=== PATIENT | male | born 1955 | race African-American/Black ===

== ENCOUNTER 2020-01-16 22:44 | Observation (INO) ==
[2020-01-16] MEDS ORDERED: 0.9 % Sodium Chloride 1,000 ML IVC ONE (23:09)
[2020-01-16 23:39] LABS: Basophils # 0.1 K/mcL (0.0-0.2); Basophils % 0.6 %; Eosinophils # 0.3 K/mcL (0.0-0.6); Eosinophils % 1.8 %; Hemoglobin 12.9 g/dL (12.9-16.9); Immature Granulocytes % 0.4 % (0-4); Lymphocytes # 0.6 K/mcL (0.6-4.6); Lymphocytes % 3.9 %; Mean Corpuscular HGB Conc 30.7 g/dL (31.6-35.5); Mean Corpuscular Hemoglobin 24.2 pg (28.0-33.3); Mean Corpuscular Volume 78.7 fL (83.0-100.0); Mean Platelet Volume 10.3 fL (9.4-12.4); Monocytes # 1.2 K/mcL (0.0-1.3); Monocytes % 8.8 %; Neutrophils # 11.9 K/mcL (1.6-8.9); Platelet Count 266 K/mcL (140-400); Red Blood Count 5.34 M/mcL (4.19-5.50); Red Cell Distribution Width 16.9 % (11.5-14.5); Segmented Neutrophils % 84.5 %; White Blood Count 14.1 K/mcL (4.3-11.1)
[2020-01-16 23:42] LABS: Bacteria,Urine Few per hpf (None-Few); Bilirubin,Urine Negative (Negative); Blood,Urine Negative (Negative); Clarity,Urine Clear (Clear); Color,Urine Yellow (Yellow); Glucose,Urine (UA) Normal (Normal); Hyaline Casts,Urine Few per lpf (None Seen); Ketones,Urine Negative (Negative); Leukocyte Esterase,Urine Negative (Negative); Mucus,Urine Few per lpf (None-Few); Nitrite,Urine Negative (Negative); PH,Urine 6.5 pH Units (5.0-8.0); Protein,Urine 100 mg/dL (Neg-Trace); Specific Gravity,Urine 1.027 (1.010-1.025); Squamous Epithelial Cell,Urine Few per hpf (None-Few)
[2020-01-16 23:57] LABS: Alanine Aminotransferase 17 Units/L (7-52); Albumin/Globulin Ratio 1.1 (1.1-2.2); Alkaline Phosphatase 106 Units/L (34-104); Aspartate Amino Transferase 26 Units/L (13-39); BUN/Creatinine Ratio 15 (6-26); Bilirubin,Total 0.5 mg/dL (0.3-1.0); Blood Urea Nitrogen 20 mg/dL (8-23); Calcium 9.9 mg/dL (8.6-10.3); Carbon Dioxide 22 mEq/L (23-29); Chloride 98 mEq/L (98-107); Globulin 3.7 g/dL (2.4-3.5); Glucose 149 mg/dL (70-105); Osmolality,Calculated 279 (280-300); Sodium 132 mEq/L (136-145); Total Protein 7.7 g/dL (6.4-8.9); eGFR For African Americans > 60 (> 60); eGFR For Non-African Americans 55 (> 60)
[2020-01-16 23:58] LABS: Troponin I 0.03 ng/mL (< 0.04)
[2020-01-17] MEDS ORDERED: methylPREDNISolone 125 MG/2 ML VIAL IVP ONE (00:03)
[2020-01-17] MEDS ORDERED: Ipratropium/Albuterol Neb 3 ML IH ONE (00:03)
[2020-01-17] MEDS ORDERED: cefTRIAXone 1,000 MG in Water for inj. (sterile) 10 ML IVP ONE (00:04)
[2020-01-17] MEDS ORDERED: Azithromycin 500 MG in 0.9 % Sodium Chloride 250 ML IVPB ONE (00:04)
[2020-01-17 00:52] LABS: Adenovirus Not Detected (Not Detect); Bordetella Pertussis Not Detected (Not Detect); Chlamydophila pneumoniae Not Detected (Not Detect); Coronavirus 229E Not Detected (Not Detect); Coronavirus HKU1 Not Detected (Not Detect); Coronavirus NL63 Not Detected (Not Detect); Coronavirus OC43 Not Detected (Not Detect); Human Metapneumovirus Not Detected (Not Detect); Human Rhinovirus/Enterovirus Not Detected (Not Detect); Influenza A Subtype 2009 H1 Not Detected (Not Detect); Influenza B Not Detected (Not Detect); Mycoplasma pneumoniae Not Detected (Not Detect); Parainfluenza Virus 1 Not Detected (Not Detect); Parainfluenza Virus 2 Not Detected (Not Detect); Parainfluenza Virus 3 Not Detected (Not Detect); Parainfluenza Virus 4 Not Detected (Not Detect); Respiratory Syncytial Virus Not Detected (Not Detect); SARS-CoV-2 Not Detected (Not Detect)
[2020-01-17] MEDS ORDERED: Naloxone 0.4 MG/ML INJ IVP PRN (01:14)
[2020-01-17] MEDS: Ipratropium/Albuterol Neb 3 ML IH SCH ×2 (04:01→09:34)
[2020-01-17 04:43] LABS: Basophils % 0.3 %; Eosinophils % 0.1 %; Hematocrit 38.6 % (37.5-50.1); Hemoglobin 12.1 g/dL (12.9-16.9); Immature Granulocytes % 0.4 % (0-4); Lymphocytes # 0.4 K/mcL (0.6-4.6); Lymphocytes % 3.4 %; Mean Corpuscular HGB Conc 31.3 g/dL (31.6-35.5); Mean Corpuscular Hemoglobin 25.1 pg (28.0-33.3); Mean Corpuscular Volume 79.9 fL (83.0-100.0); Monocytes # 0.3 K/mcL (0.0-1.3); Monocytes % 2.9 %; Neutrophils # 11.1 K/mcL (1.6-8.9); Platelet Count 236 K/mcL (140-400); Red Blood Count 4.83 M/mcL (4.19-5.50); Red Cell Distribution Width 16.4 % (11.5-14.5); Segmented Neutrophils % 92.9 %; White Blood Count 11.9 K/mcL (4.3-11.1)
[2020-01-17 05:04] LABS: BUN/Creatinine Ratio 19 (6-26); Blood Urea Nitrogen 22 mg/dL (8-23); Calcium 9.6 mg/dL (8.6-10.3); Carbon Dioxide 20 mEq/L (23-29); Chloride 103 mEq/L (98-107); Glucose 148 mg/dL (70-105); Osmolality,Calculated 282 (280-300); Potassium 3.7 mEq/L (3.5-5.1); Sodium 133 mEq/L (136-145); eGFR For African Americans > 60 (> 60); eGFR For Non-African Americans > 60 (> 60)
[2020-01-17] MEDS ORDERED: MethylPREDNISolone 40 MG/ML VIAL IVP SCH (06:00)
[2020-01-17] MEDS ORDERED: *HR* Heparin 5,000 UNIT/ML VIAL SQ SCH (06:00)
[2020-01-17 08:01] VITALS: BP 134/78
[2020-01-17] MEDS ORDERED: Budesonide/Formoterol 160/4.5 1 PUFF INH IH SCH (10:00)
[2020-01-17 10:56] LABS: Estimated Average Glucose 137 mg/dl
[2020-01-17] MEDS ORDERED: cefTRIAXone 1,000 MG in Water for inj. (sterile) 10 ML IVP SCH (18:00)
[2020-01-17] MEDS ORDERED: Azithromycin 500 MG in 0.9 % Sodium Chloride 250 ML IVPB SCH (18:00)
== END 2020-01-17 13:56 | disposition home health service (06) ==
LOC: EMEROOARM 22:44 → 3BNU 22:44 → SUATTDRO 01-17 00:56 → 3BNU 01-17 02:09
PROVIDERS: ADMIT Internal Medicine; ATTEND Internal Medicine

== ENCOUNTER 2021-12-02 14:58 | Observation (INO) ==
[2021-12-02] MEDS ORDERED: Iopamidol - 370 500 ML MLS IVP ONE (16:30)
[2021-12-02 17:06] LABS: Hematocrit 47.6 % (37.5-50.1); Mean Corpuscular HGB Conc 31.5 g/dL (31.6-35.5); Mean Corpuscular Hemoglobin 26.4 pg (28.0-33.3); Mean Corpuscular Volume 83.8 fL (83.0-100.0); Mean Platelet Volume 11.2 fL (9.4-12.4); Platelet Count 271 K/mcL (140-400); Red Blood Count 5.68 M/mcL (4.19-5.50); Red Cell Distribution Width 16.9 % (11.5-14.5); White Blood Count 10.3 K/mcL (4.3-11.1)
[2021-12-02 17:17] LABS: INR 1.1; Prothrombin Time 12.6 Seconds (9.4-12.1)
[2021-12-02 17:19] LABS: Activated Partial Thrombo Time 40.8 Seconds (26.0-36.0)
[2021-12-02 17:25] LABS: BUN/Creatinine Ratio 14 (6-26); Blood Urea Nitrogen 16 mg/dL (8-23); Calcium 9.9 mg/dL (8.6-10.3); Carbon Dioxide 28 mEq/L (23-29); Chloride 102 mEq/L (98-107); Glucose 89 mg/dL (70-105); Osmolality,Calculated 285 (280-300); Potassium 3.9 mEq/L (3.5-5.1); Sodium 137 mEq/L (136-145); Troponin I < 0.03 ng/mL (< 0.04)
[2021-12-02] MEDS ORDERED: *HR* Labetalol 20 MG/4 ML SYRINGE IVP ONE (19:02)
[2021-12-02] MEDS ORDERED: Naloxone 0.4 MG/ML INJ IVP PRN (20:01)
[2021-12-02] MEDS ORDERED: Acetaminophen 325 MG TABLET PO PRN (20:01)
[2021-12-02] MEDS ORDERED: Ondansetron 4 MG/2 ML VIAL IVP PRN (20:01)
[2021-12-02] MEDS ORDERED: Aspirin Enteric Coated 325 MG Tablet PO SCH (21:52)
[2021-12-02] MEDS ORDERED: Ipratropium/Albuterol Neb 3 ML IH PRN (21:52)
[2021-12-02] MEDS ORDERED: GI Cocktail 40 ML EACH PO ONE (21:53)
[2021-12-02] MEDS ORDERED: *HR* Metoprolol 5 MG/5 ML VIAL IVP ONE (21:58)
[2021-12-02 23:51] LABS: Adenovirus Not Detected (Not Detect); Bordetella Pertussis Not Detected (Not Detect); Chlamydophila pneumoniae Not Detected (Not Detect); Coronavirus 229E Not Detected (Not Detect); Coronavirus HKU1 Not Detected (Not Detect); Coronavirus NL63 Not Detected (Not Detect); Coronavirus OC43 Not Detected (Not Detect); Human Metapneumovirus Not Detected (Not Detect); Human Rhinovirus/Enterovirus Not Detected (Not Detect); Influenza A Subtype 2009 H1 Not Detected (Not Detect); Influenza B Not Detected (Not Detect); Mycoplasma pneumoniae Not Detected (Not Detect); Parainfluenza Virus 1 Not Detected (Not Detect); Parainfluenza Virus 2 Not Detected (Not Detect); Parainfluenza Virus 3 Not Detected (Not Detect); Parainfluenza Virus 4 Not Detected (Not Detect); Respiratory Syncytial Virus Not Detected (Not Detect); SARS-CoV-2 Not Detected (Not Detect)
[2021-12-03 02:56] LABS: Basophils # 0.1 K/mcL (0.0-0.2); Basophils % 0.9 %; Eosinophils # 0.3 K/mcL (0.0-0.6); Eosinophils % 3.1 %; Hematocrit 45.2 % (37.5-50.1); Hemoglobin 14.1 g/dL (12.9-16.9); Immature Granulocytes % 0.3 % (0-4); Lymphocytes # 2.2 K/mcL (0.6-4.6); Lymphocytes % 23.8 %; Mean Corpuscular HGB Conc 31.2 g/dL (31.6-35.5); Mean Corpuscular Hemoglobin 26.4 pg (28.0-33.3); Mean Corpuscular Volume 84.6 fL (83.0-100.0); Monocytes # 1.1 K/mcL (0.0-1.3); Monocytes % 12.1 %; Neutrophils # 5.4 K/mcL (1.6-8.9); Platelet Count 248 K/mcL (140-400); Red Blood Count 5.34 M/mcL (4.19-5.50); Red Cell Distribution Width 16.7 % (11.5-14.5); Segmented Neutrophils % 59.8 %; White Blood Count 9.1 K/mcL (4.3-11.1)
[2021-12-03 03:07] LABS: Estimated Average Glucose 134 mg/dl; Hemoglobin A1C 6.3 %
[2021-12-03 03:19] LABS: Albumin 3.7 g/dL (3.5-5.7); Albumin/Globulin Ratio 1.3 (1.1-2.2); Bilirubin,Direct 0.1 mg/dL (0.0-0.2); Bilirubin,Indirect 0.3 mg/dL (0.0-1.0); Bilirubin,Total 0.4 mg/dL (0.3-1.0); Calcium 9.5 mg/dL (8.6-10.3); Chol/HDL Ratio 4.6 (0-4.9); Globulin 2.9 g/dL (2.4-3.5); Magnesium 2.2 mg/dL (1.6-2.6); Phosphorous 3.5 mg/dL (2.7-4.5); Potassium 4.1 mEq/L (3.5-5.1); Total Protein 6.6 g/dL (6.4-8.9)
[2021-12-03 03:43] LABS: Folate 13.6 ng/mL (3.0-16.0)
[2021-12-03 06:09] LABS: Bilirubin,Urine Negative (Negative); Blood,Urine Negative (Negative); Clarity,Urine Clear (Clear); Color,Urine Light-Yellow (Yellow); Glucose,Urine (UA) Normal (Normal); Ketones,Urine Negative (Negative); Leukocyte Esterase,Urine Trace (Negative); Mucus,Urine Few per lpf (None-Few); Nitrite,Urine Negative (Negative); PH,Urine 6.5 pH Units (5.0-8.0); Protein,Urine Negative (Neg-Trace); RBC,Urine 0-3 per hpf (0-3); Specific Gravity,Urine 1.024 (1.010-1.025); Squamous Epithelial Cell,Urine Few per hpf (None-Few); Urobilinogen,Urine Normal (Normal)
[2021-12-03] MEDS: Losartan/HCTZ 50-12.5 TABLET PO SCH (06:42)
[2021-12-03 06:47] LABS: Amphetamine Screen,Urine Negative ng/mL (Cutoff=1000); Barbiturate Screen,Urine Negative ng/mL (Cutoff=200)
[2021-12-03 06:48] LABS: Benzodiazepines Screen,Urine Negative ng/mL (Cutoff=300); Cannabinoid Screen,Urine Negative ng/mL (Cutoff = 50); Cocaine Screen,Urine Negative ng/mL (Cutoff= 300); Opiate Screen,Urine Negative ng/mL (Cutoff=300); Phencyclidine Screen,Urine Negative ng/mL (Cutoff=25)
[2021-12-03] MEDS ORDERED: *HR* Enoxaparin 40 MG/0.4 ML SYRINGE SQ SCH (09:00)
[2021-12-03] MEDS: DilTIAZem CD (24hr) 240 MG CAP.ER.24H PO SCH (09:49)
[2021-12-03] MEDS ORDERED: *HR* Heparin 5,000 UNIT/ML VIAL IVP ONE (12:17)
[2021-12-03] MEDS ORDERED: *HR* Heparin 5,000 UNIT/ML VIAL IVP PRN ×2 (12:17)
[2021-12-03] MEDS ORDERED: Heparin 25,000UNIT/250ML 1/2NS 25,000 UNIT/250 ML IV.SOLN IVC SCH (12:30)
[2021-12-03 14:25] LABS: Heparin anti-factor XA UFH 0.14 IU/mL (0.30-0.70); INR 1.2
[2021-12-03] MEDS: niCARdipine 20 MG/200 ML MLS IVC SCH (18:46)
[2021-12-04 05:49] LABS: Basophils # 0.1 K/mcL (0.0-0.2); Basophils % 0.9 %; Eosinophils # 0.4 K/mcL (0.0-0.6); Eosinophils % 3.7 %; Hematocrit 46.9 % (37.5-50.1); Hemoglobin 14.9 g/dL (12.9-16.9); Immature Granulocytes % 0.3 % (0-4); Lymphocytes # 2.5 K/mcL (0.6-4.6); Lymphocytes % 22.8 %; Mean Corpuscular HGB Conc 31.8 g/dL (31.6-35.5); Mean Corpuscular Hemoglobin 26.3 pg (28.0-33.3); Mean Corpuscular Volume 82.7 fL (83.0-100.0); Mean Platelet Volume 10.9 fL (9.4-12.4); Monocytes # 1.1 K/mcL (0.0-1.3); Monocytes % 10.1 %; Neutrophils # 6.7 K/mcL (1.6-8.9); Platelet Count 250 K/mcL (140-400); Red Blood Count 5.67 M/mcL (4.19-5.50); Red Cell Distribution Width 17.4 % (11.5-14.5); Segmented Neutrophils % 62.2 %; White Blood Count 10.7 K/mcL (4.3-11.1)
[2021-12-04 06:33] LABS: Calcium 10.2 mg/dL (8.6-10.3); Potassium 3.9 mEq/L (3.5-5.1)
[2021-12-04] MEDS: DilTIAZem CD (24hr) 240 MG CAP.ER.24H PO SCH (07:59)
[2021-12-04] MEDS: Aspirin Enteric Coated 81 MG Tablet PO SCH (07:59)
[2021-12-04] MEDS: Losartan/HCTZ 50-12.5 TABLET PO SCH (08:00)
[2021-12-04] MEDS: Apixaban 5 MG TABLET PO SCH ×2 (09:20→21:03)
[2021-12-04] MEDS ORDERED: hydroCHLOROthiazide 25 MG TABLET PO SCH (14:45)
[2021-12-04] MEDS: carvediloL 6.25 MG TABLET PO SCH (16:27)
[2021-12-05 05:57] LABS: Basophils # 0.1 K/mcL (0.0-0.2); Eosinophils # 0.4 K/mcL (0.0-0.6); Eosinophils % 4.2 %; Hematocrit 45.6 % (37.5-50.1); Hemoglobin 14.5 g/dL (12.9-16.9); Immature Granulocytes % 0.2 % (0-4); Lymphocytes # 2.1 K/mcL (0.6-4.6); Lymphocytes % 22.9 %; Mean Corpuscular HGB Conc 31.8 g/dL (31.6-35.5); Mean Corpuscular Hemoglobin 26.4 pg (28.0-33.3); Mean Corpuscular Volume 82.9 fL (83.0-100.0); Mean Platelet Volume 11.2 fL (9.4-12.4); Monocytes # 1.1 K/mcL (0.0-1.3); Monocytes % 12.1 %; Neutrophils # 5.5 K/mcL (1.6-8.9); Platelet Count 227 K/mcL (140-400); Red Cell Distribution Width 17.2 % (11.5-14.5); Segmented Neutrophils % 59.6 %; White Blood Count 9.3 K/mcL (4.3-11.1)
[2021-12-05] MEDS: DilTIAZem CD (24hr) 240 MG CAP.ER.24H PO SCH (09:26)
[2021-12-05] MEDS: Aspirin Enteric Coated 81 MG Tablet PO SCH (09:26)
[2021-12-05] MEDS: Apixaban 5 MG TABLET PO SCH (09:26)
[2021-12-05] MEDS: carvediloL 6.25 MG TABLET PO SCH (09:26)
[2021-12-05 11:23] VITALS: BP 159/87; PULSE 75; TEMP 98; O2SAT 97
[2021-12-05 12:01] LABS: Calcium 10.7 mg/dL (8.6-10.3); Potassium 4.4 mEq/L (3.5-5.1)
== END 2021-12-05 13:27 | disposition home or self-care (01) ==
LOC: EMEROOARM 14:58 → 2NENU 14:58 → SUATTDRO 20:18 → 2NENU 21:09
PROVIDERS: ADMIT Internal Medicine; ATTEND Internal Medicine